=== PATIENT | female | born 1985 ===

== ENCOUNTER 2025-03-22 05:20 | Day surgery (SDC) | payer OTHER ==
[2025-03-14 11:30] VITALS: BP 124/87
[~2025-03-22] VITALS: Ht 152.4 cm; Wt 76.2 kg
[~2025-03-22 05:20] MED LIST: ZESTRIL5 MG PO
[2025-03-22] MEDS ORDERED: METRONIDAZOLE/SODIUM CHLORIDE 500 MG/100 ML PIGGYBACK IV ONE ×2 (06:56→07:30)
[2025-03-22] MEDS ORDERED: CEFTRIAXONE SODIUM 2,000 MG VIAL ONE (06:56)
[2025-03-22] MEDS ORDERED: POVIDONE-IODINE 118 ML BOTT TOP ONE (07:30)
[2025-03-22] MEDS ORDERED: HEMOSTATIC MATRIX 1 KIT KIT TOP ONE (07:30)
[2025-03-22] MEDS ORDERED: CEFTRIAXONE SODIUM 2,000 MG VIAL IV ONE (07:30)
[2025-03-22] MEDS ORDERED: DIBUCAINE 30 GM TUBE RECTAL ONE (07:30)
[2025-03-22] MEDS ORDERED: BUPIVACAINE HCL 30 ML VIAL IJ ONE (07:30)
[2025-03-22] MEDS ORDERED: BUPIVACAINE LIPOSOME/PF 266 MG/20 ML VIAL IJ ONE ×2 (08:03→08:15)
[2025-03-22] MEDS ORDERED: OXYCODONE HCL5 MG PO (08:52)
[2025-03-22] MEDS ORDERED: TAMSULOSIN HCL 0.4 MG CAP PO ONE ×2 (09:00→10:39)
[2025-03-22] MEDS ORDERED: MORPHINE SULFATE 4 MG/ML VIAL IV ONE (13:10)
== END 2025-03-22 14:40 | disposition home or self-care (01) ==
LOC: CIR.AMB 05:20
PROVIDERS: ATTEND Surgery
DX: K64.2 Third degree hemorrhoids (principal); K64.4 Residual hemorrhoidal skin tags; K62.5 Hemorrhage of anus and rectum; K62.89 Other specified diseases of anus and rectum